=== PATIENT | female | born 1995 | race African-American/Black ===

== ENCOUNTER 2017-04-22 08:41 | Emergency (ER) | payer MEDICAID ==
[2017-04-22] MEDS: cefTRIAXone 250 MG VIAL IM (09:45)
[2017-04-22] MEDS ORDERED: LIDOCAINE HCL 1% 50 ML VIAL XX (09:45)
[2017-04-22 10:10] LABS: BLOOD, URINE NEG (NEG); COMMENT (UR) CULT NOT INDICATED; GLUCOSE,URINE NEG (NEG); KETONE, URINE 10 mg/dL (NEG); MUCUS URINE MANY /lpf (OCC); NITRITE,URINE NEG (NEG); SQUAMOUS EPITHELIAL CELL URINE 27 /hpf (0-5); URINE COLOR DARK-YELLOW (YELLW/STRAW); URINE LEUKOCYTE ESTERASE MOD (NEG)
[2017-04-22 10:11] LABS: CULTURE IF INDICATED CULT NOT INDICATED
[2017-04-22 10:14] LABS: BILIRUBIN, URINE NEG (NEG)
[2017-04-22] MEDS: LIDOCAINE HCL 1% PF 2 ML VIAL OTHER (10:15)
== END 2017-04-22 10:41 | disposition home or self-care (01) ==
LOC: NEPD 08:41
DX: R10.2 Pelvic and perineal pain (principal); R07.89 Other chest pain; N73.9 Female pelvic inflammatory disease, unspecified
CPT/HCPCS: 81001; 84703; 87210; 99284